=== PATIENT | female | born 2000 | race Hispanic/Latino ===

== ENCOUNTER 2022-12-01 06:00 | Inpatient (IN) | payer MEDICAID, OTHER ==
[2022-12-01] MEDS ORDERED: Bupivacaine 0.25% HCL 30 ML VIAL ONE (08:00)
[2022-12-01] MEDS ORDERED: Misoprostol 200 MCG TAB PR PRN (13:51)
[2022-12-01] MEDS ORDERED: Ibuprofen 800 MG TAB PO PRN (13:51)
[2022-12-01] MEDS ORDERED: Diphenoxylate HCl/Atropine Tablet PO PRN (13:51)
[2022-12-01] MEDS ORDERED: Ondansetron PF 4 MG/2 ML Vial IVP PRN (13:51)
[2022-12-01] MEDS ORDERED: Carboprost 250 MCG/ML AMP IM PRN (13:51)
[2022-12-01] MEDS ORDERED: hydrALAZINE 20 MG/ML VIAL SLOW IVP PRN (13:51)
[2022-12-01] MEDS ORDERED: Methylergonovine 0.2 MG/ML VIAL IM PRN (13:51)
[2022-12-01] MEDS ORDERED: Tranexamic Acid 1,000 MG/10 ML VIAL IVP PRN (13:51)
[2022-12-01] MEDS ORDERED: Lidocaine 1% (PF) 30 ML VIAL SC PRN (13:51)
[2022-12-01] MEDS ORDERED: HYDROcodone/Acetaminophen 5/325 mg Tablet PO PRN (13:51)
[2022-12-01] MEDS ORDERED: Promethazine HCl 25 MG/ML VIAL IM PRN (13:51)
[2022-12-01] MEDS ORDERED: Acetaminophen 500 MG TAB PO PRN (13:51)
[2022-12-01] MEDS ORDERED: Misoprostol 100 MCG TAB ONE (13:57)
[2022-12-01] MEDS ORDERED: NS w/ Oxytocin 30 units 500 ML IV SCH ×3 (14:00)
[2022-12-01 14:04] VITALS: BMI 27.4
[2022-12-01] MEDS: Misoprostol 100 MCG TAB VAG SCH (14:11)
[2022-12-01 14:14] LABS: Mean Corpuscular HGB CONC 34.8 g/dL (32.0-36.0); Mean Corpuscular Hemoglobin 30.8 pg (27.0-33.0); Mean Corpuscular Volume 88.7 fl (81.6-98.3); Mean Platelet Volume 10.6 fl (7.4-10.4); Platelet Count 252 10x3/uL (150-450); RBC Distribution Width 12.4 % (11.5-14.5); Red Blood Cell (RBC) Count 3.89 10x6/uL (3.90-5.03); White Blood Cell (WBC) Count 13.3 10x3/uL (3.5-10.5)
[2022-12-01 14:43] LABS: Hep B Surf Ag - L&D Non-Reactive S/CO (NonReactive)
[2022-12-01 14:44] LABS: Syphilis Antibody Nonreactive (Nonreactive); Syphilis Antibody Index 0.05 S/CO (<1.00 Non-Reactive)
[2022-12-02] MEDS: fentaNYL 50 mcg/mL 1 mL Vial SLOW IVP PRN ×2 (06:33→08:56)
[2022-12-02] MEDS ORDERED: fentaNYL/Ropivacaine Epidural 100 ML ONE (09:43)
[2022-12-02] MEDS ORDERED: diphenhydrAMINE 50 MG/ML VIAL IVP PRN (10:31)
[2022-12-02] MEDS ORDERED: Moisturizing Cream (Eucerin) 113 GM JAR TOP PRN (10:31)
[2022-12-02] MEDS ORDERED: Naloxone HCl 0.4 mg/ml Vial IVP PRN ×2 (10:31)
[2022-12-02] MEDS ORDERED: Acetaminophen 325 MG TAB PO PRN (10:31)
[2022-12-02] MEDS ORDERED: Promethazine HCl 25 MG/ML VIAL IM PRN ×2 (10:31→20:58)
[2022-12-02] MEDS ORDERED: ePHEDrine Sulfate 50 MG/10 ML VIAL SLOW IVP PRN (10:31)
[2022-12-02] MEDS ORDERED: Ondansetron PF 4 MG/2 ML Vial IVP PRN ×2 (10:31→20:58)
[2022-12-02] MEDS ORDERED: Lactated Ringer's 500 ML IV PRN (10:31)
[2022-12-02] MEDS ORDERED: fentaNYL 2 mcg/Ropivacaine 0.2% Epidural 100 ML CADD EPIDURAL SCH (10:45)
[2022-12-02] MEDS ORDERED: Communication Order-Pharmacy FS SCH (10:45)
[2022-12-02] MEDS ORDERED: PHENYLEPHRINE-NS 100 MCG/ML 10 ML SYRINGE ONE (14:21)
[2022-12-02] MEDS ORDERED: Boostrix 0.5 ML (Tdap) VIAL (>/=7 yrs of age) IM ONE (20:58)
[2022-12-02] MEDS ORDERED: Lanolin Ointment 7 GM TUBE TOP PRN (20:58)
[2022-12-02] MEDS ORDERED: diphenhydrAMINE 25 MG CAP PO PRN (20:58)
[2022-12-02] MEDS ORDERED: HYDROcodone/Acetaminophen 5/325 mg Tablet PO PRN ×2 (20:58)
[2022-12-02] MEDS ORDERED: Benzocaine-Menthol 82.5 ML CAN TOP PRN (20:58)
[2022-12-02] MEDS ORDERED: Milk Of Magnesia 30 ML UDCUP PO PRN (20:58)
[2022-12-02] MEDS ORDERED: Bisacodyl 10 MG SUPP PR PRN (20:58)
[2022-12-02] MEDS ORDERED: hydrALAZINE 20 MG/ML VIAL SLOW IVP PRN (20:58)
[2022-12-02] MEDS ORDERED: Ferrous Sulfate 325 MG TAB PO SCH (21:15)
[2022-12-02] MEDS: Docusate 100 MG CAP PO SCH (21:22)
[2022-12-02] MEDS: Ibuprofen 800 MG TAB PO SCH (21:22)
[2022-12-03] MEDS: Ibuprofen 800 MG TAB PO SCH ×3 (04:58→21:13)
[2022-12-03] MEDS: Ferrous Sulfate 325 MG TAB PO SCH ×2 (07:29→15:37)
[2022-12-03] MEDS: Misoprostol 100 MCG TAB VAG SCH (08:45)
[2022-12-03] MEDS: Prenatal Vitamin 1 TAB PO SCH (09:37)
[2022-12-03] MEDS: Docusate 100 MG CAP PO SCH ×2 (09:37→21:13)
[2022-12-04] MEDS: Ibuprofen 800 MG TAB PO SCH ×2 (05:47→13:53)
[2022-12-04] MEDS: Ferrous Sulfate 325 MG TAB PO SCH (07:07)
[2022-12-04 07:43] VITALS: BP 101/66; TEMP 97.4
[2022-12-04] MEDS: Docusate 100 MG CAP PO SCH (08:24)
[2022-12-04] MEDS: Prenatal Vitamin 1 TAB PO SCH (08:24)
== END 2022-12-04 17:30 | disposition home or self-care (01) | DRG 807 ==
LOC: CSHLD 12:08 → CSHPP 12-02 19:49
PROVIDERS: ADMIT Family Medicine; ATTEND Family Medicine
PROC: 10E0XZZ Delivery of Products of Conception, External Approach (ICD-10-PCS; principal; 2022-12-02)
PROC: 10907ZC Drainage of Amniotic Fluid, Therapeutic from Products of Conception, Via Natural or Artificial Opening (ICD-10-PCS; 2022-12-02)
PROC: 3E0P7VZ Introduction of Hormone into Female Reproductive, Via Natural or Artificial Opening (ICD-10-PCS; 2022-12-02)
DX: O48.0 Post-term pregnancy (principal); Z37.0 Single live birth; Z3A.40 40 weeks gestation of pregnancy; Z79.899 Other long term (current) drug therapy; O69.81X0 Labor and delivery complicated by cord around neck, without compression, not applicable or unspecified
CPT/HCPCS: 51702; 85027; 86780; 86850; 86900; 86901; 87340; J3010; S0020